=== PATIENT | female | born 1975 | race Caucasian/White ===

== ENCOUNTER 2019-06-21 10:44 | Outpatient (REF) | payer BC, SELFPAY ==
[2019-06-21 21:44] LABS: Bilirubin Negative (Negative); Blood Negative (Negative); Clarity Clear (Clear); Glucose 100 mg/dL (Negative); Ketones Negative (Negative); Leukocyte Esterase Negative (Negative); Nitrite Positive (Negative); Specific Gravity 1.025 (1.005-1.025); Urobilinogen 0.2 EU/dL (Up TO 0.2)
[2019-06-21 21:57] LABS: Bacteria Moderate HPF (Negative); C & S Indicated? C&S Done As Ordered; Crystals Negative HPF (Negative); Epithelial Cells Moderate HPF (Negative); Mucus Negative (Negative); RBC 0-2 HPF (0-2); WBC 0-2 HPF (0-5)
== END 2019-06-21 11:04 ==
LOC: NCHCN 10:44
PROVIDERS: PCP Family Medicine; Visit Provider Nurse Practitioner Community Health
DX: R35.0 Frequency of micturition (principal)
CPT/HCPCS: 81003; 81015; 87086

== ENCOUNTER 2020-06-04 10:44 | Outpatient (REF) | payer BC, SELFPAY ==
--- NOTE | 2020-06-04 09:00 | PAPFT_PTH ---
PATIENT: SHARON ETIENNE LOC: [facility] U#:[id number] AGE/SX: 44/F ROOM: RE06/04/[address]: Joceline Zafar : 1975 BED: DIS: 06/04/2020 SPEC #: [id number] RECD: 06/05/20 12:53 STATUS: LG REQ #: [id number] JEANIE: 06/04/20 09:[address]: Joceline Zafar DEPT: [facility] Cytology RECD BY: Deepika Chambers Tissues: 1 - CX/ENDOCX FOR PAP SMEARS Procedures: PAP THIN PREP/[facility] Screening HPV DNA PROBE Comments: [id number] ([id number] [facility])
== END 2020-06-04 11:04 ==
LOC: NCHCN 10:44
PROVIDERS: PCP Family Medicine; Visit Provider Family Medicine
DX: Z00.00 Encounter for general adult medical examination without abnormal findings (principal); Z12.4 Encounter for screening for malignant neoplasm of cervix; Z11.51 Encounter for screening for human papillomavirus (HPV)
CPT/HCPCS: 88142; 87624